=== PATIENT | female | born 2000 | race Caucasian/White ===

== ENCOUNTER 2024-03-18 15:52 | Emergency (ER) | payer BC, SELFPAY ==
[2024-03-18 15:52] VITALS: BMI 46.3
[2024-03-18 16:08] VITALS: BP 130/84
--- NOTE | 2024-03-18 18:32 | ED.GENMED ---
History of Present Illness
General
Chief Complaint: Chest Pain
Time Seen by Provider: 03/18/24 17:49
History of Present Illness
History of Present Illness:
Patient presents emergency department left-sided chest pain. 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 Pain is left superior chest. It was initially sharp and worse with deep inspiration. Pain has improved at this time and is only mild.
She has a history of fibromyalgia but denies pain similar to this in the past. Denies leg swelling. Denies current OCP use
Phy Exam
Physical Exam
Physical Exam:
GENERAL APPEARANCE: NAD, well developed/ well nourished
EYES lids/conjunctiva normal
EARS/NOSE/THROAT Mucous membranes moist, uvula midline without oral pharyngeal erythema, exudate or swelling
HEAD/NECK normocephalic atraumatic, neck is supple.
RESPIRATORY respiratory effort normal, speaks in full sentences, no accessory muscle use. Lungs clear to auscultation without rhonchi, wheezes, rales
CARDIAC Regular rate and rhythm, no edema.
ABDOMINAL Soft, ND/Nt
MUSCLES/EXTREMITIES No abnormal range of motion, no swelling.
SKIN Warm, pink and dry. No rashes
NEUROLOGICAL Speech is clear and appropriate. Normal level of consciousness. 5/5 strength in all extremities.
PSYCH Normal mood and affect. Judgement/competence is appropriate
Scores
Heart Score for Chest Pain Patients
STEMI patient?: No
History: Slightly or Non-Suspicious
ECG: Normal
Age: </= 45 years
Risk Factors: No Risk Factors
Troponin: </= Normal Limit
Heart Score for Chest Pain Patients: 0
Heart Score Risk: 2.5% MACE over next 6 weeks
Course
Orders/Labs/Results
Orders:
Orders
03/18/24 15:56
Electrocardiogram (*1) Urgent
Reason for Study: Chest Pain
03/18/24 15:57
EKG- Treatment ONCE
03/18/24 16:13
Test Result ONCE
03/18/24 18:35
CR Chest - 2 Views Urgent
Comment:
Reason For Exam: cp
03/18/24 18:37
Complete Blood Count/With Diff Urgent
Comprehensive Metabolic Panel Urgent
D-Dimer Urgent
HCG, Serum Qualitative Screen Urgent
Troponin I Urgent
Abnormal Lab Results
03/18/24
18:37
Hgb 11.2 L g/dL
(12.0-16.0)
Hct 34.4 L %
(37.0-47.0)
MCV 73.0 L fL
(81.0-99.0)
MCH 23.8 L pg
(27.0-31.0)
MCHC 32.6 L g/dL
(33.0-37.0)
RDW 15.2 H %
(11.5-14.5)
Creatinine 0.5 L mg/dL
(0.6-1.0)
03/18/24 18:37
03/18/24 18:37
Vital Signs
Initial and Last Documented VS:
Initial Vital Signs
Temp Pulse Resp BP Pulse Ox
98.4 F 101 20 130/84 97
03/18/24 16:08 03/18/24 16:08 03/18/24 16:08 03/18/24 16:08 03/18/24 16:08
Last Documented Vital Signs
Temp Pulse Resp BP Pulse Ox
98.4 F 82 14 111/70 97
03/18/24 16:08 03/18/24 18:42 03/18/24 18:42 03/18/24 18:41 03/18/24 16:08
*Critical Care Note
Total Time (30-74mins, 75-104mins- exclusive of procedures): Not Applicable
ED Attending Note
ED Attending Note
ED Attending Note:
Patient with low risk chest pain, nonischemic EKG, negative troponin greater than 3 hours from onset of pain. D-dimer negative low risk by Wells score. History suggestive of musculoskeletal pain as this occurred while she was moving actively.
Chest x-ray without acute disease on preliminary read, final read pending
-
Portions of this chart may have been created with voice recognition software.� Occasional wrong word or��sound alike� substitutions may have occurred due to the inherent limitations of voice recognition software.
Discharge Plan
Departure
Patient Disposition: Home (Routine Discharge)
Date of Disposition: 03/18/24
Time of Disposition: 20:17
Patient with high blood pressure during this ER visit?: No
Discharge Problem:
Chest pain
Instructions: Chest Pain PCP Follow Up
Referrals:
NONE,* [Family Provider] -
Activity Restrictions/Additional Instructions:
return to ER with new or worsening symptoms
follow up with your doctor in the next week for recheck
Interventions
Interventions:
*Risk Screen - Suicide Last Done: 03/18/24 16:08
*General Assessment Last Done: 03/18/24 16:08
*Neglect/Abuse Screening Last Done: 03/18/24 16:08
ED- Cardiac Assessment Last Done: 03/18/24 18:30
Discharge Date and Time
Print Language: BHUTANESE
[2024-03-18 18:41] VITALS: BP 111/70
[2024-03-18 18:45] LABS: % Basophils 0.3 % (0-2); % Eosinophils 0.8 % (0-6); % Immature Granulocytes 0.1 % (0-0.5); % Lymphocytes 32.1 % (20.5-51.1); % Monocytes 4.2 % (1.7-9.3); % Neutrophils 62.5 % (42.2-75.2); Absolute Eosinophils 0.1 10^3/uL (0-0.7); Absolute Lymphocytes 2.8 10^3/uL (1.2-3.4); Absolute Monocytes 0.4 10^3/uL (0.1-0.6); Absolute Neutrophils 5.4 10^3/uL (1.4-6.5); Hematocrit 34.4 % (37.0-47.0); Hemoglobin 11.2 g/dL (12.0-16.0); Mean Corp Hgb Conc. 32.6 g/dL (33.0-37.0); Mean Corpuscular Hgb 23.8 pg (27.0-31.0); Nucleated Red Blood Cells % 0 %; Platelet Count 351 10^3/uL (130-400); Red Blood Cell Count 4.71 10^6/uL (4.20-5.40); Red Cell Dist. Width 15.2 % (11.5-14.5); White Blood Cell Count 8.7 10^3/uL (4.8-10.8)
[2024-03-18 19:00] VITALS: BP 74/36
[2024-03-18 19:03] LABS: HCG, Serum Qualitative Screen Negative
[2024-03-18 19:04] LABS: ALT (SGPT) 18 U/L (0-35); AST (SGOT) 24 U/L (14-36); Albumin 4.3 g/dl (3.5-5.0); Alkaline Phosphatase 120 U/L (38-126); Blood Urea Nitrogen 16 mg/dl (7-17); Calcium 9.1 mg/dl (8.4-10.2); Carbon Dioxide 27 mmol/L (22-30); Chloride 103 mmol/L (98-107); Estimated Creatinine Clearance > 125 ml/min; Glucose 84 mg/dl (70-99); Potassium 4.4 mmol/L (3.5-5.1); Sodium 136 mmol/L (135-145); Total Bilirubin 0.3 mg/dl (0.2-1.3); Total Protein 7.4 g/dl (6.3-8.2); eGFR > 60.00
[2024-03-18 19:06] LABS: D-Dimer < 0.27 ug/mlFEU (0.00-0.50)
[2024-03-18 19:07] LABS: Troponin I < 0.012 ng/ml
[2024-03-18 20:00] VITALS: BP 91/45
== END 2024-03-18 20:57 | disposition home or self-care (01) ==
LOC: EMR 15:52
PROVIDERS: EMERGENCY PHYSICIAN Emergency Medicine
DX: R07.89 Other chest pain (principal); M79.7 Fibromyalgia
CPT/HCPCS: 99283; 71046; 80053; 84484; 84703; 85025; 85379; 93005